=== PATIENT | male | born 1950 | race Caucasian/White ===

== ENCOUNTER 2019-05-27 02:09 | Emergency (ER) | payer MEDICARE, OTHER ==
[~2019-05-27] VITALS: Ht 182.9 cm; Wt 102.3 kg
[2019-05-27 02:19] VITALS: BP 147/83; TEMP 98.2
[2019-05-27] MEDS ORDERED: RYTHMOL 15150 MG/TAB PO (02:21)
[2019-05-27] MEDS ORDERED: BYSTOLIC5 MG PO (02:22)
[2019-05-27] MEDS ORDERED: ELIQUIS 5MG PO (02:22)
[2019-05-27] MEDS ORDERED: FLEXERIL 1010 MG/TAB PO (03:20)
[2019-05-27] MEDS ORDERED: MEDROL 4MG DOSPA4 MG PO (03:20)
[2019-05-27] MEDS ORDERED: NORCO 325 MG-51 TAB PO (03:20)
[2019-05-27 05:38] VITALS: PULSE 73
[2019-05-27 11:57] LABS: COLLECTION METHOD CLEAN CATCH
[2019-05-27 12:03] LABS: PH 6 (5-8); SQUAMOUS EPITHELIAL None Seen /hpf; URINE APPEARANCE Clear; URINE BACTERIA None Seen /hpf; URINE BILIRUBIN Negative (NEGATIVE); URINE BLOOD Negative (NEGATIVE); URINE COLOR Straw; URINE GLUCOSE 1+ (NEGATIVE); URINE KETONE Negative (NEGATIVE); URINE LEUKOCYTE ESTERASE Negative (NEGATIVE); URINE NITRATE Negative (NEGATIVE); URINE PROTEIN(semi-quant) Negative (NEGATIVE); URINE RBC 0-2 /hpf; URINE UROBILINOGEN Negative (NEGATIVE)
== END 2019-05-27 05:38 | disposition home or self-care (01) ==
LOC: COL.ER 02:09
PROVIDERS: Emergency Medicine
DX: M54.41 Lumbago with sciatica, right side (principal)
CPT/HCPCS: J2360; J7512

== ENCOUNTER → 2019-05-27 | Outpatient (CLI) | payer MEDICARE, OTHER ==
[~2019-05-27] MED LIST: BYSTOLIC5 MG PO; ELIQUIS 5MG PO; FLEXERIL 1010 MG/TAB PO; MEDROL 4MG DOSPA4 MG PO; NORCO 325 MG-51 TAB PO; RYTHMOL 15150 MG/TAB PO
== END ==
LOC: ZCOL.LAB 11:51
DX: Z01.89 Encounter for other specified special examinations (principal)

== ENCOUNTER → 2019-06-03 | Outpatient (CLI) | payer MEDICARE, OTHER | LOC: COL.RAD 13:56 | DX: Z01.812 Encounter for preprocedural laboratory examination (principal); M51.16 Intervertebral disc disorders with radiculopathy, lumbar region | CPT/HCPCS: A9585 ==